=== PATIENT | female | born 1945 | race Caucasian/White ===

== ENCOUNTER 2017-04-25 09:42 | Emergency (ER) | payer MEDICARE, BC ==
[~2017-04-25] VITALS: Ht 170.2 cm; Wt 84.0 kg
[~2017-04-25 09:42] MED LIST: AMOXICILLIN500 M2 PO; AMOXICILLIN500 MG PO; AMPICILLIN500 MG PO; ASPIRIN LOW DOS81 M1 PO; ATENOLOL25 MG PO; CHANTIX STARTIN0.5 & PO; CITALOPRAM20 MG PO; CITALOPRAM40 MG PO; CLONAZEPAM2 MG PO; COLACE100 MG PO; CYMBALTA20 MG PO; CYMBALTA60 MG PO; DOXYCYCL HYC100 MG PO; EFFEXOR XR150 MG PO; EFFEXOR XR75 MG PO; GABAPENTIN100 MG PO; GABAPENTIN300 M2 PO; GABAPENTIN300 MG PO; HYDROXYCHLOR200 M1 PO; KLONOPIN0.5 M1 PO; METHOCARBAMOL500 MG PO; NEURONTIN100 MG PO; OXYCODONE HCL15 MG PO; PROMETHAZINE12.5 MG PO; PROTONIX40 M2 PO; RAYOS5 MG PO; SIMVASTATIN20 MG PO; SIMVASTATIN40 MG PO; SONATA10 M1 PO; TEMAZEPAM30 MG PO; TIZANIDINE HCL4 M1 PO; VENLAFAXINE37.5 M1 PO; VENLAFAXINE37.5 M2 PO; [UNRECOGNIZED DRUG - OTHER] PO
[2017-04-25 10:51] LABS: HEMATOCRIT 40.3 % (37.0-47.0); HEMOGLOBIN 13.3 g/dl (12.0-16.0); IMMATURE GRANULOCYTES 0.3 % (0.0-1.0); MEAN CELL VOLUME 96.9 fL CALC (80.0-100.0); NEUT# 4.42 thou/uL (2.00-7.15); RED BLOOD COUNT 4.16 mill/uL (4.20-5.60); RED CELL DISTRI WIDTH 13.1 % (11.5-15.5)
[2017-04-25 11:01] LABS: ALBUMIN 4.2 g/dL (3.2-5.0); BILIRUBIN, TOTAL 0.4 mg/dL (0.0-1.4); CREATININE 1.2 mg/dL (0.5-1.0); POTASSIUM 4.2 mmol/l (3.5-5.1); TOTAL PROTEIN 7.3 g/dL (6.3-8.2)
[2017-04-25] MEDS ORDERED: ADULT ASPIRIN E81 MG PO (11:06)
[2017-04-25 11:36] LABS: URINE BILIRUBIN - DIPSTICK NEGATIVE (NEGATIVE); URINE BLOOD DIPSTICK TRACE-INTACT (NEGATIVE); URINE COLOR YELLOW; URINE GLUCOSE - DIPSTICK NEGATIVE (NEGATIVE); URINE KETONE NEGATIVE (NEGATIVE); URINE LEUK ESTERASE NEGATIVE (NEGATIVE); URINE PH 5.5 (4.5-8.0); URINE PROTEIN - DIPSTICK NEGATIVE (NEG-TRACE); URINE UROBILINOGEN - DIPSTICK 0.2 E.U./dL (0.2)
[2017-04-25 11:40] LABS: URINE CLARITY SL CLOUDY; URINE NITRITE - DIPSTICK POSITIVE (Negative)
[2017-04-25 11:45] VITALS: BP 138/71
[2017-04-25 11:45] LABS: URINE BACTERIA MANY hpf; URINE RBC 0-2 RBC/hpf (0-5); URINE SQUAMOUS EPITHELIAL CELL FEW EPI/hpf (0-FEW)
[2017-04-27] MEDS ORDERED: CYMBALTA60 MG PO (10:36)
[2017-04-27] MEDS ORDERED: [UNRECOGNIZED DRUG - OTHER] PO (11:09)
== END 2017-04-25 11:45 ==
LOC: ED 09:42
PROVIDERS: Family Medicine
DX: K92.2 Gastrointestinal hemorrhage, unspecified (principal); Z79.82 Long term (current) use of aspirin; F17.210 Nicotine dependence, cigarettes, uncomplicated; K21.9 Gastro-esophageal reflux disease without esophagitis

== ENCOUNTER 2017-06-14 13:58 | Emergency (ER) | payer MEDICARE, BC ==
[~2017-06-14] VITALS: Ht 170.2 cm; Wt 90.0 kg
[~2017-06-14 13:58] MED LIST changes: +ADULT ASPIRIN E81 MG PO; +AMBIEN10 MG PO; +[UNRECOGNIZED DRUG - OTHER] PO
[2017-06-14 14:42] LABS: HEMATOCRIT 37.1 % (37.0-47.0); HEMOGLOBIN 12.4 g/dl (12.0-16.0); IMMATURE GRANULOCYTES 0.4 % (0.0-1.0); MEAN CELL VOLUME 95.1 fL CALC (80.0-100.0); MEAN CORPUSCULAR HGB 31.8 pG CALC (26.0-32.0); MEAN CORPUSCULAR HGB CONC 33.4 g/L CALC (32.0-36.0); NEUT# 4.93 thou/uL (2.00-7.15); RED BLOOD COUNT 3.9 mill/uL (4.20-5.60); RED CELL DISTRI WIDTH 12.9 % (11.5-15.5)
[2017-06-14 14:56] LABS: BILIRUBIN, TOTAL 0.4 mg/dL (0.0-1.4); CREATININE 1.2 mg/dL (0.5-1.0); POTASSIUM 3.8 mmol/l (3.5-5.1); TOTAL PROTEIN 7.3 g/dL (6.3-8.2)
[2017-06-14 16:08] LABS: URINE BILIRUBIN - DIPSTICK NEGATIVE (NEGATIVE); URINE BLOOD DIPSTICK TRACE-INTACT (NEGATIVE); URINE COLOR YELLOW; URINE GLUCOSE - DIPSTICK NEGATIVE (NEGATIVE); URINE KETONE NEGATIVE (NEGATIVE); URINE LEUK ESTERASE NEGATIVE (NEGATIVE); URINE PH 6.5 (4.5-8.0); URINE PROTEIN - DIPSTICK NEGATIVE (NEG-TRACE); URINE SPECIFIC GRAVITY <=1.005; URINE UROBILINOGEN - DIPSTICK 0.2 E.U./dL (0.2)
[2017-06-14 16:09] LABS: URINE NITRITE - DIPSTICK POSITIVE (Negative)
[2017-06-14 16:11] LABS: URINE CLARITY TURBID
[2017-06-14 16:43] LABS: URINE SQUAMOUS EPITHELIAL CELL FEW EPI/hpf (0-FEW)
[2017-06-14 16:44] LABS: URINE BACTERIA MANY hpf
[2017-06-14] MEDS ORDERED: BACTRIM DS1 TAB PO (16:47)
[2017-06-14 19:33] VITALS: BP 138/68
== END 2017-06-14 19:33 | disposition home or self-care (01) ==
LOC: ED 13:58
PROVIDERS: Emergency Medicine
DX: R53.1 Weakness (principal); R05 Cough; R06.02 Shortness of breath; T40.7X5A Adverse effect of cannabis (derivatives), initial encounter; M54.9 Dorsalgia, unspecified; K21.9 Gastro-esophageal reflux disease without esophagitis; F17.210 Nicotine dependence, cigarettes, uncomplicated; N39.0 Urinary tract infection, site not specified; B96.20 Unspecified Escherichia coli [E. coli] as the cause of diseases classified elsewhere; Z87.11 Personal history of peptic ulcer disease

== ENCOUNTER 2018-03-20 06:35 | Day surgery (SDC) | payer MEDICARE, BC ==
[~2018-03-20] VITALS: Ht 170.2 cm; Wt 79.4 kg
[~2018-03-20 06:35] MED LIST changes: +AMLODIPINE5 MG PO; +BACTRIM DS1 TAB PO; +CBD; +CBD PO; +CLONAZEPAM1 MG PO; +THC; +THC PO; +ZOFRAN4 MG/TAB PO; +[UNRECOGNIZED DRUG - OTHER] PO
[2018-03-20 08:56] VITALS: BP 92/57
== END 2018-03-20 09:10 | disposition home or self-care (01) ==
LOC: ENDO 06:35 → ORM 07:30 → ENDO 08:00 → ORM 08:30 → ENDO 09:10
PROVIDERS: ATTEND Surgery
PROC: 0DBH8ZX Excision of Cecum, Via Natural or Artificial Opening Endoscopic, Diagnostic (ICD-10-PCS; principal; 2018-03-20)
PROC: 0DBL8ZX Excision of Transverse Colon, Via Natural or Artificial Opening Endoscopic, Diagnostic (ICD-10-PCS; 2018-03-20)
PROC: 0DBN8ZX Excision of Sigmoid Colon, Via Natural or Artificial Opening Endoscopic, Diagnostic (ICD-10-PCS; 2018-03-20)
DX: R19.7 Diarrhea, unspecified (principal); R15.9 Full incontinence of feces; K50.10 Crohn's disease of large intestine without complications; K57.30 Diverticulosis of large intestine without perforation or abscess without bleeding; Q43.8 Other specified congenital malformations of intestine; R32 Unspecified urinary incontinence; I10 Essential (primary) hypertension; E78.5 Hyperlipidemia, unspecified; F17.200 Nicotine dependence, unspecified, uncomplicated; Z98.890 Other specified postprocedural states

== ENCOUNTER 2018-05-21 09:00 | Outpatient (RCR) | payer MEDICARE, BC ==
--- NOTE | 2018-05-03 12:26 | NUR ---
Pt. in for Treatment Team and IOP. Pt. is clean amd neat. Alert and oriented times 3. Affect mildly tense. Mood worried. Pt. states she is doing "very good". Pt. states she has concluded "my son is bullying me". Pt. acknowledges her coping skills. Pt. states no medication changes. Pt. requesting refill of Clonazepam. Script given to Pt. by Juan Nicolas APRN. Pt. to continue with her current treatment plan. Pt. is attending IOP 2 times a week with monthly 1:1. Will follow up in one month. Treatment team is concluded.
[2018-05-14 10:35] VITALS: BP 117/74
== END 2018-05-23 23:59 | disposition still patient (30) ==
LOC: SLIP3 09:00
PROVIDERS: ATTEND Specialist
DX: F33.1 Major depressive disorder, recurrent, moderate (principal); F41.1 Generalized anxiety disorder; F10.11 Alcohol abuse, in remission

== ENCOUNTER 2019-08-15 13:39 | Emergency (ER) | payer MEDICARE, BC ==
[~2019-08-15 13:39] MED LIST changes: -AMLODIPINE5 MG PO; +NORVASC5 M1 PO
[2019-08-15] MEDS ORDERED: BUSPAR5 MG PO (14:41)
[2019-08-15] MEDS ORDERED: FOLIC ACID1 MG PO (14:42)
[2019-08-15] MEDS ORDERED: TRAZODONE50 MG PO (14:43)
[2019-08-15] MEDS ORDERED: OXYCODONE10 M1 PO (14:45)
[2019-08-15] MEDS ORDERED: PREDNISONE5 MG PO (14:46)
[2019-08-15] MEDS ORDERED: VITAMIN D-32000 UNI1 PO (14:46)
[2019-08-15] MEDS ORDERED: B-121000 MC1 PO (14:47)
[2019-08-15] MEDS ORDERED: FERR SULFATE325 MG PO (14:47)
[2019-08-15 15:31] LABS: URINE BILIRUBIN - DIPSTICK NEGATIVE (NEGATIVE); URINE BLOOD DIPSTICK NEGATIVE (NEGATIVE); URINE COLOR YELLOW; URINE GLUCOSE - DIPSTICK NEGATIVE (NEGATIVE); URINE KETONE NEGATIVE (NEGATIVE); URINE LEUK ESTERASE TRACE (NEGATIVE); URINE NITRITE - DIPSTICK NEGATIVE (Negative); URINE PROTEIN - DIPSTICK NEGATIVE (NEG-TRACE); URINE UROBILINOGEN - DIPSTICK 0.2 E.U./dL (0.2)
[2019-08-15 15:32] LABS: HEMATOCRIT 36.3 % (37.0-47.0); HEMOGLOBIN 11.7 g/dl (12.0-16.0); IMMATURE GRANULOCYTES 0.2 % (0.0-5.0); MEAN CORPUSCULAR HGB CONC 32.2 g/dL CAL (32.0-36.0); NEUT# 6.79 thou/uL (2.00-7.15); RED BLOOD COUNT 3.78 mill/uL (4.20-5.60); RED CELL DISTRI WIDTH 13.5 % (11.5-15.5)
[2019-08-15 15:43] LABS: ALBUMIN 4.1 g/dL (3.2-5.0); BILIRUBIN, TOTAL 0.5 mg/dL (0.0-1.4); CREATININE 1.4 mg/dL (0.5-1.0); POTASSIUM 4.2 mmol/l (3.5-5.1); TOTAL PROTEIN 7.3 g/dL (6.3-8.2)
[2019-08-15 18:10] VITALS: BP 137/67
== END 2019-08-15 18:10 | disposition home or self-care (01) ==
LOC: ED 13:39
PROVIDERS: Family Medicine
DX: R10.13 Epigastric pain (principal); F17.210 Nicotine dependence, cigarettes, uncomplicated
CPT/HCPCS: Q9967

== ENCOUNTER 2019-11-25 08:25 | Day surgery (SDC) | payer MEDICARE, BC ==
[~2019-11-25] VITALS: Ht 170.2 cm; Wt 81.2 kg
[~2019-11-25 08:25] MED LIST changes: +B-121000 MC1 PO; +BUSPAR5 MG PO; +FERR SULFATE325 MG PO; +FOLIC ACID1 MG PO; +OXYCODONE10 M1 PO; +PREDNISONE5 MG PO; +TRAZODONE50 MG PO; +VITAMIN D-32000 UNI1 PO
[2019-11-25] MEDS ORDERED: AMPICILLIN500 MG PO (08:52)
[2019-11-25 10:35] VITALS: BP 118/56
== END 2019-11-25 10:40 | disposition home or self-care (01) ==
LOC: ENDO 08:25
PROVIDERS: ATTEND Surgery
PROC: 0DB78ZX Excision of Stomach, Pylorus, Via Natural or Artificial Opening Endoscopic, Diagnostic (ICD-10-PCS; principal; 2019-11-25)
DX: K29.70 Gastritis, unspecified, without bleeding (principal); K44.9 Diaphragmatic hernia without obstruction or gangrene; D64.9 Anemia, unspecified; I10 Essential (primary) hypertension; F17.210 Nicotine dependence, cigarettes, uncomplicated; Z87.11 Personal history of peptic ulcer disease; Z87.19 Personal history of other diseases of the digestive system; Z20.828 Contact with and (suspected) exposure to other viral communicable diseases

== ENCOUNTER 2020-10-08 15:51 | Emergency (ER) | payer MEDICARE, BC ==
[~2020-10-08] VITALS: Ht 170.2 cm; Wt 85.0 kg
[2020-10-08] MEDS ORDERED: VALTREX500 MG PO (16:13)
[2020-10-08 16:38] VITALS: BP 128/77
== END 2020-10-08 16:38 | disposition home or self-care (01) ==
LOC: ED 15:51
DX: B02.9 Zoster without complications (principal); I10 Essential (primary) hypertension; F17.200 Nicotine dependence, unspecified, uncomplicated

== ENCOUNTER 2021-06-28 11:50 | Observation (INO) | payer MEDICARE, BC ==
[~2021-06-28] VITALS: Ht 170.2 cm; Wt 70.0 kg
[2021-06-28] VITALS (11 sets, daily range): BP systolic 130–176; BP diastolic 74–97
[~2021-06-28 11:50] MED LIST changes: +VALTREX500 MG PO
[2021-06-28 12:18] LABS: HEMATOCRIT 36.9 % (37.0-47.0); HEMOGLOBIN 11.9 g/dl (12.0-16.0); IMMATURE GRANULOCYTES 0.3 % (0.0-5.0); MEAN CELL VOLUME 96.6 fL CALC (80.0-100.0); MEAN CORPUSCULAR HGB 31.2 pG CALC (26.0-32.0); MEAN CORPUSCULAR HGB CONC 32.2 g/dL CAL (32.0-36.0); NEUT# 8.66 thou/uL (2.00-7.15); RED BLOOD COUNT 3.82 mill/uL (4.20-5.60); RED CELL DISTRI WIDTH 13.2 % (11.5-15.5); URINE BILIRUBIN - DIPSTICK NEGATIVE (NEGATIVE); URINE BLOOD DIPSTICK NEGATIVE (NEGATIVE); URINE COLOR YELLOW; URINE GLUCOSE - DIPSTICK NEGATIVE (NEGATIVE); URINE KETONE NEGATIVE (NEGATIVE); URINE LEUK ESTERASE NEGATIVE (NEGATIVE); URINE PROTEIN - DIPSTICK NEGATIVE (NEG-TRACE); URINE SPECIFIC GRAVITY 1.015; URINE UROBILINOGEN - DIPSTICK 0.2 E.U./dL (0.2)
[2021-06-28 12:24] LABS: URINE NITRITE - DIPSTICK NEGATIVE (Negative)
[2021-06-28 12:34] LABS: ALBUMIN 3.7 g/dL (3.2-5.0); BILIRUBIN, TOTAL 0.5 mg/dL (0.0-1.4); CREATININE 1.1 mg/dL (0.5-1.0); TOTAL PROTEIN 7.1 g/dL (6.3-8.2)
[2021-06-28] MEDS ORDERED: CHOLESTYRAMINE L4 G1 PO (16:29)
[2021-06-28] MEDS ORDERED: POTASSIUM CHLO20 ME2 PO (16:30)
[2021-06-28] MEDS ORDERED: SPIRIVA RE2.5 MCG/AC IN (16:31)
[2021-06-28] MEDS ORDERED: ARAVA20 MG PO (16:31)
[2021-06-28] MEDS ORDERED: XTAMPZA ER9 MG PO (16:31)
[2021-06-28] MEDS ORDERED: ATENOLOL25 MG PO (16:42)
[2021-06-29 00:45] VITALS: BP 103/66
[2021-06-29 04:20] VITALS: BP 115/66
[2021-06-29 05:53] LABS: HEMATOCRIT 32.9 % (37.0-47.0); HEMOGLOBIN 10.5 g/dl (12.0-16.0); MEAN CELL VOLUME 98.2 fL CALC (80.0-100.0); MEAN CORPUSCULAR HGB 31.3 pG CALC (26.0-32.0); MEAN CORPUSCULAR HGB CONC 31.9 g/dL CAL (32.0-36.0); RED BLOOD COUNT 3.35 mill/uL (4.20-5.60); RED CELL DISTRI WIDTH 13.6 % (11.5-15.5)
[2021-06-29 06:20] LABS: CREATININE 1.5 mg/dL (0.5-1.0); MAGNESIUM 1.6 mg/dL (1.6-2.3); POTASSIUM 3.2 mmol/l (3.5-5.1)
[2021-06-29] MEDS ORDERED: PREDNISONE5 MG PO (10:49)
[2021-06-29 14:38] VITALS: BP 116/68
[2021-06-29 20:09] VITALS: BP 103/59
[2021-06-29 20:10] VITALS: BP 98/59
[2021-06-29 20:14] VITALS: BP 171/96
[2021-06-30 00:52] VITALS: BP 101/52
[2021-06-30 04:17] VITALS: BP 109/49
[2021-06-30 05:45] LABS: HEMATOCRIT 31.3 % (37.0-47.0); HEMOGLOBIN 9.6 g/dl (12.0-16.0); MEAN CELL VOLUME 101.6 fL CALC (80.0-100.0); MEAN CORPUSCULAR HGB 31.2 pG CALC (26.0-32.0); MEAN CORPUSCULAR HGB CONC 30.7 g/dL CAL (32.0-36.0); RED BLOOD COUNT 3.08 mill/uL (4.20-5.60); RED CELL DISTRI WIDTH 13.6 % (11.5-15.5)
[2021-06-30 06:06] LABS: CREATININE 1.4 mg/dL (0.5-1.0)
[2021-06-30 06:08] LABS: MAGNESIUM 2.3 mg/dL (1.6-2.3)
[2021-06-30 11:26] VITALS: BP 127/66
[2021-06-30 14:45] VITALS: BP 108/55
[2021-06-30 19:30] VITALS: BP 125/62
[2021-07-01 00:45] VITALS: BP 129/67
[2021-07-01 05:03] VITALS: BP 151/71
[2021-07-01 05:10] LABS: HEMATOCRIT 30.5 % (37.0-47.0); HEMOGLOBIN 9.4 g/dl (12.0-16.0); MEAN CELL VOLUME 101.3 fL CALC (80.0-100.0); MEAN CORPUSCULAR HGB 31.2 pG CALC (26.0-32.0); MEAN CORPUSCULAR HGB CONC 30.8 g/dL CAL (32.0-36.0); RED BLOOD COUNT 3.01 mill/uL (4.20-5.60); RED CELL DISTRI WIDTH 13.6 % (11.5-15.5)
[2021-07-01 05:29] LABS: CREATININE 1.3 mg/dL (0.5-1.0); MAGNESIUM 2.1 mg/dL (1.6-2.3); POTASSIUM 3.9 mmol/l (3.5-5.1)
[2021-07-01 08:00] VITALS: BP 143/80
[2021-07-01 10:43] VITALS: BP 135/73
[2021-07-01] MEDS ORDERED: FLORASTOR250 M1 PO (11:31)
[2021-07-01] MEDS ORDERED: CIPROFLOXACN500 MG PO (11:32)
[2021-07-01] MEDS ORDERED: METRONIDAZOLE500 MG PO (11:34)
== END 2021-07-01 13:28 | disposition home or self-care (01) ==
LOC: ED 11:50 → ED-I 13:43 → ED 13:59 → MS2 14:00
PROVIDERS: Family Medicine; ADMIT Internal Medicine; ATTEND Internal Medicine
DX: K57.32 Diverticulitis of large intestine without perforation or abscess without bleeding (principal); I12.9 Hypertensive chronic kidney disease with stage 1 through stage 4 chronic kidney disease, or unspecified chronic kidney disease; N18.9 Chronic kidney disease, unspecified; E83.42 Hypomagnesemia; E87.6 Hypokalemia; J44.9 Chronic obstructive pulmonary disease, unspecified; I25.10 Atherosclerotic heart disease of native coronary artery without angina pectoris; M06.9 Rheumatoid arthritis, unspecified; M35.3 Polymyalgia rheumatica; G62.9 Polyneuropathy, unspecified; F41.9 Anxiety disorder, unspecified; F32.A Depression, unspecified; F17.210 Nicotine dependence, cigarettes, uncomplicated; T40.2X6A Underdosing of other opioids, initial encounter; Z91.128 Patient's intentional underdosing of medication regimen for other reason; Z79.891 Long term (current) use of opiate analgesic; Z87.01 Personal history of pneumonia (recurrent); Z63.9 Problem related to primary support group, unspecified; Z86.79 Personal history of other diseases of the circulatory system; Z20.822 Contact with and (suspected) exposure to COVID-19
CPT/HCPCS: J3475; Q9967

== ENCOUNTER 2021-07-01 16:54 | Observation (INO) | payer MEDICARE, BC ==
[~2021-07-01] VITALS: Ht 170.2 cm; Wt 71.0 kg
[~2021-07-01 16:54] MED LIST changes: +ARAVA20 MG PO; +CHOLESTYRAMINE L4 G1 PO; +CIPROFLOXACN500 MG PO; +FLORASTOR250 M1 PO; +METRONIDAZOLE500 MG PO; +POTASSIUM CHLO20 ME2 PO; +SPIRIVA RE2.5 MCG/AC IN; +XTAMPZA ER9 MG PO
[2021-07-01 17:34] LABS: IMMATURE GRANULOCYTES 0.5 % (0.0-5.0); MEAN CELL VOLUME 97.9 fL CALC (80.0-100.0); MEAN CORPUSCULAR HGB 30.7 pG CALC (26.0-32.0); MEAN CORPUSCULAR HGB CONC 31.4 g/dL CAL (32.0-36.0); NEUT# 8.14 thou/uL (2.00-7.15); RED BLOOD COUNT 4.36 mill/uL (4.20-5.60); RED CELL DISTRI WIDTH 13.4 % (11.5-15.5)
[2021-07-01 17:45] LABS: HEMATOCRIT 42.7 % (37.0-47.0); HEMOGLOBIN 13.4 g/dl (12.0-16.0)
--- NOTE | 2021-07-01 17:49 | NUR ---
Patient to room by EMS.
[2021-07-01 17:58] LABS: ALBUMIN 4.4 g/dL (3.2-5.0); BILIRUBIN, TOTAL 0.7 mg/dL (0.0-1.4); CREATININE 1.2 mg/dL (0.5-1.0); POTASSIUM 3.7 mmol/l (3.5-5.1)
[2021-07-01 17:59] LABS: TOTAL PROTEIN 8.8 g/dL (6.3-8.2)
[2021-07-01 18:28] LABS: URINE BILIRUBIN - DIPSTICK NEGATIVE (NEGATIVE); URINE BLOOD DIPSTICK TRACE-INTACT (NEGATIVE); URINE COLOR YELLOW; URINE GLUCOSE - DIPSTICK NEGATIVE (NEGATIVE); URINE KETONE NEGATIVE (NEGATIVE); URINE LEUK ESTERASE NEGATIVE (NEGATIVE); URINE NITRITE - DIPSTICK NEGATIVE (Negative); URINE PH 7.5 (4.5-8.0); URINE PROTEIN - DIPSTICK NEGATIVE (NEG-TRACE); URINE UROBILINOGEN - DIPSTICK 0.2 E.U./dL (0.2)
--- NOTE | 2021-07-01 18:54 | NUR ---
PATIENTS GOWN CHANGED, DR AGUILAR BEDSIDE FOR REEVALUATION
--- NOTE | 2021-07-01 21:50 | NUR ---
Patient medicated before leaving for [place]
[2021-07-01 23:00] VITALS: BP 179/106
--- NOTE | 2021-07-01 23:00 | NUR ---
Reassessment of patient completed. No distress noted.
[2021-07-01 23:15] VITALS: BP 164/99
--- NOTE | 2021-07-01 23:30 | NUR ---
PT ASSISTED TO BR AND THEN CHANGED TO A HOSPITAL BED FROM THE STRETCHER.
[2021-07-01 23:45] VITALS: BP 189/116
[2021-07-01 23:50] VITALS: BP 184/110
[2021-07-02] VITALS (43 sets, daily range): BP systolic 108–191; BP diastolic 60–119
--- NOTE | 2021-07-02 00:30 | NUR ---
Reassessment of patient completed. No distress noted.
--- NOTE | 2021-07-02 01:15 | NUR ---
Reassessment of patient completed. No distress noted.
--- NOTE | 2021-07-02 02:00 | NUR ---
Reassessment of patient completed. No distress noted.
--- NOTE | 2021-07-02 03:00 | NUR ---
Reassessment of patient completed. No distress noted.
--- NOTE | 2021-07-02 04:00 | NUR ---
Reassessment of patient completed. No distress noted.
--- NOTE | 2021-07-02 05:00 | NUR ---
Reassessment of patient completed. No distress noted.
--- NOTE | 2021-07-02 06:00 | NUR ---
Reassessment of patient completed. No distress noted.
--- NOTE | 2021-07-02 07:06 | NUR ---
ASSUMED CARE OF PT AT THIS TIME. PT RESTING COMFORTABLY IN BED. VSS. WAITING TO BED PLACEMENT
--- NOTE | 2021-07-02 18:56 | NUR ---
PT ARRIVED TO FLOOR APPROX 0930, ALERT X4 AND ABLE TO MAKE NEEDS KNOWN
--- NOTE | 2021-07-02 20:00 | NUR ---
PATIENT RESTING IN BED AT THIS TIME-AWAKE ALERT AND ORIENTEDX3. PATIENT STATES THAT SHE HAD TO COME BACK TO THE HOSPITAL YESTERDAY AFTER BEING DISCHARGE DUE TO SAME SX-ABD PAIN, N/V, AND DIARRHEA. IV SITE TO LAC INTACT AND HEALTHY WITH GOOD BLOOD RETURN. IVF LR PATENT AND INFUSING VIA LAC AT 100CC/HR. PATIENT MEDICATED FOR ABD PAIN WITH MORPHINE 4MG IVP ORDERED FOR PAIN. PATIENT STILL WITHOUT HOME MEDS THAT WERE ORDERED-STATES THAT HER SON WAS NOT ABLE TO FIND THEM AT HOME. PATIENT WAS INFORMED THAT WE DON'T CARRY MEDICATION AND THEREFORE CAN'T GIVE IT TO HER UNTIL HER SON BRINGS IT IN. THEN IT WAS THAT THE DOG KNOCK OVER THINGS AT HOME AND HE COULD NOT FIND THEM. STRESSED TO THE PATIENT THAT THESE MEDICATIONS ARE CONTROLLED SUBSTANCES THAT NEED TO BE STORED AND SECURED PROPERLY. PATIENT VERBALIZES UNDERSTANDING. SAFETY PRECAUTIONS REINFORCED WITH PATIENT. CALL LIGHT IN REACH. WILL CONT TO MONITOR.
--- NOTE | 2021-07-03 | NUR ---
PATIENT RESTING IN BED-POSITIONED ON RIGHT SIDE. IVF PATENT AND INFUSING VIA LAC SITE ORDERED. EYES ARE CLOSED. RESPS ARE EVEN AND UNLABORED.D CALL LIGHT IN REACH. WILL CONT TO MONITOR.
[2021-07-03 01:45] VITALS: BP 138/80
[2021-07-03 04:46] VITALS: BP 121/77
--- NOTE | 2021-07-03 05:31 | NUR ---
RESTING IN BED-POSITIONED ON RIGHT SIDE. EYES ARE CLOSED, REPS ARE EVEN AND UNLABORED. IVF PATENT AND INFUSING VIA LAC SITE. CALL LIGHT IN REACH. WILL CONT TO MONITOR.
--- NOTE | 2021-07-03 05:34 | NUR ---
PATIENT INCONT OF MODERATEAMT OF LOOSE GREEN STOOL. PROVIDED WITH PERINEAL CARE WITH SOAP AND WATER. LINENS WEERE CHANGED. CALL LIGHT IN REACH. WILL CONT TO MONITOR.
[2021-07-03 06:05] LABS: CREATININE 1.4 mg/dL (0.5-1.0); MAGNESIUM 2.1 mg/dL (1.6-2.3); POTASSIUM 3.8 mmol/l (3.5-5.1)
[2021-07-03 09:02] VITALS: BP 145/84
--- NOTE | 2021-07-03 09:34 | NUR ---
SHIFT CHANGE REPORT, PT AWAKE ALERT AND ORIENTED RESTING IN BED, C/O BACK PAIN @ 6/10 AND ACHING, REPORTED SHE JUST LOST HER SPOUSE ONE MONTH AGO AND MADE A LONG TRIP TO [facility] RECENTLY DRIVING ALL THE WAY. SHE IS CONCERNED ABOUT LOOSING HER HOME SHE IS UNABLE TO PAY THE HIGH MORTGAGE BUT HAS OPTIONS OF MOVING BACK TO [place] IN HER OTHER HOUSE WITH A MUCH LOWER MORTGAGE. IVF INFUSING, CALL ROTHMAN IN REACH AND BED LOCKED IN LOWEST POSITION.
--- NOTE | 2021-07-03 11:59 | NUR ---
ASSISTED OOB TO RECLINER AT THIS TIME AND SET UP FOR MEAL, PT IS REQUESTING PAIN MED NOW, INFORMED NUSE WILL ADDRESS CONCERN IN TIMELY MANNER.
[2021-07-03 14:44] VITALS: BP 99/55
[2021-07-03 20:39] VITALS: BP 98/66
--- NOTE | 2021-07-03 20:40 | NUR ---
PATIENT RESTING IN BED-SON AT BEDSIDE. PATIENT AND SON STATES THAT HE STILL IS NOT ABLE TO LOCATE PATIENT HOME MED THAT HAS BEEN ORDERED FOR USE DAILY HERE IN THE HOSPITAL. PATIENT IS AWAKE ALERT AND ORIENTEDX3. IVF NS PATENT AND INFUSING VIA LAC SITE AT KVO RATE. DENIES ANY DIARRHEA TODAY. VOIDING WITHOUT ANY DIFFICULTY. MEDICATED WITH MORPHINE FOR PAIN. SAFETY PRECAUTIONS REINFORCED. CALL LIGHT IN REACH. WILL CONT TO MONITOR.
--- NOTE | 2021-07-03 22:53 | NUR ---
PATIENT RESTING IN BED-IV SITE TO LAC DISLODGED WITH CATH INTACT. NEW IV SITE STARTED TO RIGHT FOREARM WITH #24 WITH GOOD BLOOD RETURN. IVF PATENTANDINFUSING AT KVO RATE. PATIENT UP TO THE BSC-SMALL LIGHT COLORED BM AND VOIDING YELLOW URINE. SAFETY PRECAUTIONS REINFORCED. CALL LIGHT IN REACH. WILL CONT TO MONITOR.
--- NOTE | 2021-07-04 00:16 | NUR ---
PATIENT STATES THAT HER SON CALLED AND HE WAS ABLE TO LOCATE HER XTAMPZA AT HOME AND WILL BRING IT TO THE HOSPITAL IN THE MORNING. MEDICATED FOR PAIN WITH OXYCODONE IR 15MG PO FOR LEFT HIP AND BACK PAIN, CALL LIGHT IN REACH. WILL CONT TO MONITOR.
[2021-07-04 04:00] VITALS: BP 86/57
[2021-07-04 05:02] VITALS: BP 94/57
--- NOTE | 2021-07-04 05:08 | NUR ---
PATIENT RESTING IN BED-LAB WORK DRAWN. MEDICATED FOR PAIN WITH MORPHINE 4MG IVP VIA RIGHT FOREARM SITE-SITE REMAINS HEALTHY WITH GOOD BLOOD RETURN. CALL LIGHT IN REACH. WILL CONT TO MONITOR.
[2021-07-04 05:42] LABS: HEMATOCRIT 41.3 % (37.0-47.0); HEMOGLOBIN 13.1 g/dl (12.0-16.0); MEAN CELL VOLUME 99.8 fL CALC (80.0-100.0); MEAN CORPUSCULAR HGB 31.6 pG CALC (26.0-32.0); MEAN CORPUSCULAR HGB CONC 31.7 g/dL CAL (32.0-36.0); RED BLOOD COUNT 4.14 mill/uL (4.20-5.60); RED CELL DISTRI WIDTH 14.1 % (11.5-15.5)
[2021-07-04 06:24] LABS: CREATININE 1.5 mg/dL (0.5-1.0); MAGNESIUM 2.1 mg/dL (1.6-2.3); POTASSIUM 3.2 mmol/l (3.5-5.1)
[2021-07-04 07:59] VITALS: BP 118/69
--- NOTE | 2021-07-04 10:46 | NUR ---
RECD REPORT FROM HEEL PAINTER, PT SLEEPING NO S/S OF DISTRESS OR DISCOMFORT
--- NOTE | 2021-07-04 12:00 | NUR ---
PT SLEEPING, NO S/S OF DISTRESS OR DISCOMFORT
[2021-07-04 14:18] VITALS: BP 134/67
--- NOTE | 2021-07-04 16:00 | NUR ---
PT IS RESTING COMFORTABLY WATCHING TV, DENIES PAIN AT THIS TIME
[2021-07-04 20:37] VITALS: BP 120/73
--- NOTE | 2021-07-04 22:15 | NUR ---
PT LAYING IN BED AWAKE, NO DISTRESS NOTED, BED IN LOW POSITION, CALL LIGHT IN REACH
--- NOTE | 2021-07-05 02:22 | NUR ---
PT IN BED ASLEEP, NO DISTRESS NOTED, BED ALQARM ON AND IN LOW POSITION, CALL LIGHT WITHIN REACH
--- NOTE | 2021-07-05 04:17 | NUR ---
PT IN BED ASLEEP, NO DISTRESS NOTED, BED IN LOW POSITITON, CALL LIGHT IN REACH
[2021-07-05 05:17] VITALS: BP 107/61
[2021-07-05 05:47] LABS: HEMOGLOBIN 11.3 g/dl (12.0-16.0); IMMATURE GRANULOCYTES 0.3 % (0.0-5.0); MEAN CELL VOLUME 99.2 fL CALC (80.0-100.0); MEAN CORPUSCULAR HGB 31.8 pG CALC (26.0-32.0); MEAN CORPUSCULAR HGB CONC 32.1 g/dL CAL (32.0-36.0); NEUT# 4.59 thou/uL (2.00-7.15); RED BLOOD COUNT 3.55 mill/uL (4.20-5.60); RED CELL DISTRI WIDTH 14.4 % (11.5-15.5)
[2021-07-05 05:55] LABS: HEMATOCRIT 35.2 % (37.0-47.0)
[2021-07-05 05:58] LABS: CREATININE 1.5 mg/dL (0.5-1.0)
[2021-07-05 05:59] LABS: ALBUMIN 2.9 g/dL (3.2-5.0); BILIRUBIN, TOTAL 0.3 mg/dL (0.0-1.4); POTASSIUM 3.9 mmol/l (3.5-5.1); TOTAL PROTEIN 5.8 g/dL (6.3-8.2)
[2021-07-05 07:59] VITALS: BP 158/87
--- NOTE | 2021-07-05 08:00 | NUR ---
RECD REPORT FROM PARTRIDGE FARMER, PT SLEEPING COMFORTABLLY WITH NO S/S OF DISTRESS OR DISCOMFORT
--- NOTE | 2021-07-05 12:00 | NUR ---
PT RESTING COMFORTABLY IN BED WATCHING TV, DENIES PAIN AT THIS TIME
--- NOTE | 2021-07-05 16:07 | NUR ---
PT RESTING IN PAIN, STATES THAT HER BACK HURTS AND SHE WOULD LIKE SOME PAIN MEDS, ADVISED I WOULD BRING HER SOME SOON I COULD
[2021-07-05 19:43] VITALS: BP 124/71
--- NOTE | 2021-07-05 20:00 | NUR ---
pt in bed awake, no distress noted, bed in low position, call light in reach
--- NOTE | 2021-07-06 | NUR ---
pt in bed asleep, no distress noted, bed in low position, call light in reach
--- NOTE | 2021-07-06 04:09 | NUR ---
pt asleep in bed, no distress noted, bed in low positon, call light in reach
[2021-07-06 04:19] VITALS: BP 138/79
[2021-07-06 05:26] LABS: HEMATOCRIT 35.6 % (37.0-47.0); HEMOGLOBIN 11.2 g/dl (12.0-16.0); IMMATURE GRANULOCYTES 0.3 % (0.0-5.0); MEAN CELL VOLUME 98.6 fL CALC (80.0-100.0); MEAN CORPUSCULAR HGB CONC 31.5 g/dL CAL (32.0-36.0); NEUT# 4.22 thou/uL (2.00-7.15); RED BLOOD COUNT 3.61 mill/uL (4.20-5.60); RED CELL DISTRI WIDTH 14.3 % (11.5-15.5)
[2021-07-06 05:45] LABS: CREATININE 1.1 mg/dL (0.5-1.0); POTASSIUM 3.8 mmol/l (3.5-5.1)
[2021-07-06 07:32] VITALS: BP 135/75
[2021-07-06 08:46] LABS: SGOT/AST 89 u/l (9-36)
--- NOTE | 2021-07-06 08:52 | NUR ---
PT AWAKE UPON ENTERING ROOM. STATES PAIN IN ABD AREA. ASSESSMENT AND VITALS ALLOWED. ABLE TO TOLERATE PO MEDS WELL. NO N/V. FALL/SAFTEY PERCAUTION IN PLACE. CALL LIGHT WITHIN REACH.
--- NOTE | 2021-07-06 12:01 | NUR ---
Attempted treatment x 2 this am, initially tansferring to w/c with nursing for US, returned while am care being done and pt c/o nausea and vomiting. She refuse treatment at this time.
--- NOTE | 2021-07-06 13:03 | NUR ---
PT RESTING WITH EYES CLOSED. BREATHING IS EVEN AND UNLABORED. NO DISTRESS NOTED FALL/SAFTEY PRECAUTION IN PLACE. CALL LIGHT WITHIN REACH
[2021-07-06] MEDS ORDERED: METRONIDAZOLE250 MG PO (13:37)
[2021-07-06] MEDS ORDERED: CIPROFLOXACN500 MG PO (13:37)
[2021-07-06 14:12] VITALS: BP 125/83
--- NOTE | 2021-07-06 14:45 | NUR ---
Discharge instructions given. Patient verbalizes understanding of same. Discharged in stable condition via Wheelchair to Home with staff. All belongings sent with pt.
--- NOTE | 2021-07-06 14:46 | NUR ---
Pt seen this pm for treatment, She repored being better and was waiting for he son to take her home. Pt was able to demonstrate some bed exercises she has done in pass. pt was able to perform bed mobility and supine to and from sit with supervision. Sit to and from stand with supervision and verbal cue for safety. Gait x 30' in room with RW and supervision, no LOB noted, posture flexed. Pt was assisted min to get dress and then her son arrived. A- [facility] home with home health P- Pt d/jose from hospital.
== END 2021-07-06 14:50 | disposition home health service (06) ==
LOC: ED 16:54 → ED-I 22:30 → MS2 22:46 → ED-I 22:46 → ED 22:46 → MS2 07-02 07:33
PROVIDERS: Family Medicine; Nurse Practitioner; ADMIT Internal Medicine; ATTEND Internal Medicine
DX: R10.84 Generalized abdominal pain (principal); R11.2 Nausea with vomiting, unspecified; R14.0 Abdominal distension (gaseous); R53.1 Weakness; K57.32 Diverticulitis of large intestine without perforation or abscess without bleeding; I12.9 Hypertensive chronic kidney disease with stage 1 through stage 4 chronic kidney disease, or unspecified chronic kidney disease; N18.9 Chronic kidney disease, unspecified; I25.10 Atherosclerotic heart disease of native coronary artery without angina pectoris; J44.9 Chronic obstructive pulmonary disease, unspecified; M35.3 Polymyalgia rheumatica; G62.9 Polyneuropathy, unspecified; M06.9 Rheumatoid arthritis, unspecified; F41.9 Anxiety disorder, unspecified; F32.A Depression, unspecified; F17.200 Nicotine dependence, unspecified, uncomplicated; Z86.79 Personal history of other diseases of the circulatory system; Z87.01 Personal history of pneumonia (recurrent); E87.6 Hypokalemia; M54.50 Low back pain, unspecified; G89.29 Other chronic pain
CPT/HCPCS: G0378; J1650; Q9967

== ENCOUNTER 2022-02-20 09:00 | Day surgery (SDC) | payer MEDICARE, BC ==
[~2022-02-20] VITALS: Ht 170.2 cm; Wt 70.3 kg
[~2022-02-20 09:00] MED LIST changes: +BUDESONID2 PO; +ELIQUIS2.5 MG; +METRONIDAZOLE250 MG PO
[2022-02-20] MEDS ORDERED: OXYCODONE10 M1 PO (09:26)
[2022-02-20 12:56] VITALS: BP 146/86
== END 2022-02-20 12:23 | disposition home or self-care (01) ==
LOC: ENDO 09:00
PROVIDERS: ATTEND Internal Medicine Gastroenterology
PROC: 0DB98ZX Excision of Duodenum, Via Natural or Artificial Opening Endoscopic, Diagnostic (ICD-10-PCS; principal; 2022-02-20)
PROC: 0DB78ZX Excision of Stomach, Pylorus, Via Natural or Artificial Opening Endoscopic, Diagnostic (ICD-10-PCS; 2022-02-20)
PROC: 0DB28ZX Excision of Middle Esophagus, Via Natural or Artificial Opening Endoscopic, Diagnostic (ICD-10-PCS; 2022-02-20)
PROC: 0DB38ZX Excision of Lower Esophagus, Via Natural or Artificial Opening Endoscopic, Diagnostic (ICD-10-PCS; 2022-02-20)
DX: K29.70 Gastritis, unspecified, without bleeding (principal); K52.832 Lymphocytic colitis

== ENCOUNTER 2022-07-14 12:22 | Observation (INO) | payer MEDICARE, BC ==
[~2022-07-14] VITALS: Ht 170.2 cm; Wt 88.0 kg
[2022-07-14] VITALS (32 sets, daily range): BP systolic 120–196; BP diastolic 71–118
[2022-07-14 13:20] LABS: BASO% 0.6 % (0-3); EOS% 0.1 % (0-8); HEMATOCRIT 41.6 % (37.0-47.0); HEMOGLOBIN 13.7 g/dl (12.0-16.0); IMMATURE GRANULOCYTES 0.4 % (0.0-5.0); LYMPH% 5.8 % (15-41); MEAN CORPUSCULAR HGB 31.3 pG CALC (26.0-32.0); MEAN CORPUSCULAR HGB CONC 32.9 g/dL CAL (32.0-36.0); MONO% 6.5 % (2-13); NEUT# 12.04 thou/uL (2.00-7.15); NEUT% 86.6 % (42-76); RED BLOOD COUNT 4.38 mill/uL (4.20-5.60); RED CELL DISTRI WIDTH 12.9 % (11.5-15.5)
[2022-07-14 13:28] LABS: ALBUMIN 4.5 g/dL (3.2-5.0); CREATININE 1.2 mg/dL (0.5-1.0); POTASSIUM 3.5 mmol/l (3.5-5.1); TOTAL PROTEIN 7.9 g/dL (6.3-8.2)
[2022-07-14 13:30] LABS: BILIRUBIN, TOTAL 0.9 mg/dL (0.02-1.3)
[2022-07-14] MEDS ORDERED: DICYCLOMINE HCL20 MG PO (14:03)
[2022-07-14] MEDS ORDERED: CYMBALTA60 MG PO (14:04)
[2022-07-14] MEDS ORDERED: ARAVA20 MG PO (14:04)
[2022-07-14] MEDS ORDERED: ATENOLOL25 MG PO (14:05)
[2022-07-14] MEDS ORDERED: K-TAB20 MEQ (14:06)
[2022-07-14 16:35] LABS: URINE BILIRUBIN - DIPSTICK NEGATIVE (NEGATIVE); URINE BLOOD DIPSTICK SMALL (NEGATIVE); URINE COLOR YELLOW; URINE GLUCOSE - DIPSTICK NEGATIVE (NEGATIVE); URINE KETONE NEGATIVE (NEGATIVE); URINE LEUK ESTERASE NEGATIVE (NEGATIVE); URINE PH 8.5 (4.5-8.0); URINE PROTEIN - DIPSTICK 30 mg/dL (NEG-TRACE); URINE UROBILINOGEN - DIPSTICK 0.2 E.U./dL (0.2)
[2022-07-14 16:41] LABS: URINE NITRITE - DIPSTICK NEGATIVE (Negative)
[2022-07-14 16:53] LABS: URINE RBC 0-2 RBC/hpf (0-5)
[2022-07-15] VITALS (7 sets, daily range): BP systolic 96–190; BP diastolic 62–119
[2022-07-15 10:03] LABS: CREATININE 1.2 mg/dL (0.5-1.0); MAGNESIUM 1.9 mg/dL (1.6-2.3); POTASSIUM 3.6 mmol/l (3.5-5.1)
[2022-07-15 10:06] LABS: HEMATOCRIT 41.7 % (37.0-47.0); HEMOGLOBIN 13.3 g/dl (12.0-16.0); MEAN CELL VOLUME 97.4 fL CALC (80.0-100.0); MEAN CORPUSCULAR HGB 31.1 pG CALC (26.0-32.0); MEAN CORPUSCULAR HGB CONC 31.9 g/dL CAL (32.0-36.0); RED BLOOD COUNT 4.28 mill/uL (4.20-5.60); RED CELL DISTRI WIDTH 13.3 % (11.5-15.5)
[2022-07-15 10:15] LABS: CHOLESTEROL HDL RATIO 5.2 (<4.4 (CALC))
[2022-07-15] MEDS ORDERED: BUDESONIDE3 MG PO (12:27)
[2022-07-16] VITALS (9 sets, daily range): BP systolic 112–185; BP diastolic 58–102
[2022-07-16 05:03] LABS: HEMATOCRIT 39.4 % (37.0-47.0); HEMOGLOBIN 12.3 g/dl (12.0-16.0); MEAN CORPUSCULAR HGB 30.9 pG CALC (26.0-32.0); MEAN CORPUSCULAR HGB CONC 31.2 g/dL CAL (32.0-36.0); RED BLOOD COUNT 3.98 mill/uL (4.20-5.60); RED CELL DISTRI WIDTH 13.2 % (11.5-15.5)
[2022-07-16 05:17] LABS: BILIRUBIN, TOTAL 0.8 mg/dL (0.02-1.3); CREATININE 1.4 mg/dL (0.5-1.0); MAGNESIUM 1.9 mg/dL (1.6-2.3); POTASSIUM 3.7 mmol/l (3.5-5.1)
[2022-07-16 05:20] LABS: ALBUMIN 3.2 g/dL (3.2-5.0)
[2022-07-17 00:15] VITALS: BP 137/73
[2022-07-17 04:12] VITALS: BP 111/73
[2022-07-17 04:49] LABS: HEMOGLOBIN 11.2 g/dl (12.0-16.0); MEAN CELL VOLUME 97.5 fL CALC (80.0-100.0); MEAN CORPUSCULAR HGB 31.2 pG CALC (26.0-32.0); RED BLOOD COUNT 3.59 mill/uL (4.20-5.60); RED CELL DISTRI WIDTH 13.1 % (11.5-15.5)
[2022-07-17 05:05] LABS: ALBUMIN 2.9 g/dL (3.2-5.0); BILIRUBIN, TOTAL 0.7 mg/dL (0.02-1.3); CREATININE 1.3 mg/dL (0.5-1.0); MAGNESIUM 1.9 mg/dL (1.6-2.3); POTASSIUM 3.6 mmol/l (3.5-5.1); TOTAL PROTEIN 5.7 g/dL (6.3-8.2)
[2022-07-17 07:55] VITALS: BP 126/66
[2022-07-17 15:57] VITALS: BP 140/70
[2022-07-17] MEDS ORDERED: DICYCLOMINE HCL20 MG PO (17:23)
[2022-07-17] MEDS ORDERED: AMOX/K CLAV875 M1 PO (17:24)
[2022-07-17] MEDS ORDERED: ZOFRAN4 MG/TAB PO (17:25)
== END 2022-07-17 18:34 | disposition home health service (06) ==
LOC: ED 12:22 → ED-I 15:44 → ED 16:45 → MS2 16:46
PROVIDERS: Family Medicine; Nurse Practitioner; ADMIT Internal Medicine; ATTEND Internal Medicine
DX: A41.9 Sepsis, unspecified organism (principal); R65.20 Severe sepsis without septic shock; K52.832 Lymphocytic colitis; E87.20 Acidosis, unspecified; I12.9 Hypertensive chronic kidney disease with stage 1 through stage 4 chronic kidney disease, or unspecified chronic kidney disease; N18.9 Chronic kidney disease, unspecified; I48.91 Unspecified atrial fibrillation; F03.90 Unspecified dementia, unspecified severity, without behavioral disturbance, psychotic disturbance, mood disturbance, and anxiety; J44.9 Chronic obstructive pulmonary disease, unspecified; G62.9 Polyneuropathy, unspecified; M35.3 Polymyalgia rheumatica; M06.9 Rheumatoid arthritis, unspecified; F41.9 Anxiety disorder, unspecified; Z79.891 Long term (current) use of opiate analgesic; F32.A Depression, unspecified; F17.200 Nicotine dependence, unspecified, uncomplicated; Z79.01 Long term (current) use of anticoagulants; Z87.19 Personal history of other diseases of the digestive system; Z86.79 Personal history of other diseases of the circulatory system
CPT/HCPCS: Q9967